=== PATIENT | male | born 1995 | race Caucasian/White ===

== ENCOUNTER 2022-08-23 19:55 | Emergency (ER) | payer OTHER ==
[~2022-08-23] VITALS: Ht 170.2 cm; Wt 99.8 kg
[~2022-08-23 19:55] MED LIST: AMOX-CLAV 875-1 EACH PO; CYCLOBENZAPRINE10 MG PO; KETO10TA2 PO; MUPIROCIN22 GM TOP
== END 2022-08-24 01:12 | disposition home or self-care (01) ==
LOC: ER 19:55
DX: B34.9 Viral infection, unspecified (principal); Z91.040 Latex allergy status; Z91.013 Allergy to seafood